=== PATIENT | female | born 1980 | race American Indian/Alaskan Native ===

== ENCOUNTER 2019-08-23 06:22 | Inpatient (IN) | payer MEDICAID ==
[2019-08-23] MEDS ORDERED: Acetaminophen 500 MG Tab PO ONE (06:30)
[2019-08-23] MEDS ORDERED: Scopolamine 1.5 MG Transdermal Patch TOP SCH (06:30)
[2019-08-23] MEDS ORDERED: Celecoxib 200 MG Cap PO ONE (06:30)
[2019-08-23] MEDS ORDERED: Gabapentin 300 MG Cap PO ONE (06:30)
[2019-08-23 06:48] LABS: HEMOGLOBIN A1C 9.3 % (4.5-6.2)
[2019-08-23] MEDS ORDERED: cefOXitin 2 GM in Sodium Chloride 0.9% 50 ML IV ONE (07:00)
[2019-08-23] MEDS ORDERED: Dextrose 5%-Lactated Ringers 1,000 ML IV SCH (07:00)
[2019-08-23] MEDS ORDERED: Rocuronium 50 MG/5 ML Vial ONE (07:10)
[2019-08-23] MEDS ORDERED: Glycopyrrolate 0.2 MG/ML 5 ML MDV ONE (07:10)
[2019-08-23] MEDS ORDERED: Succinylcholine 200 MG/10 ML MDV ONE (07:10)
[2019-08-23] MEDS ORDERED: Neostigmine Methylsulfate 1 MG/ML 5 ML Syringe ONE (07:10)
[2019-08-23] MEDS ORDERED: Propofol 200 MG/20 ML SDV ONE (07:10)
[2019-08-23] MEDS ORDERED: Dexamethasone 4 MG/ML SDV ONE (07:10)
[2019-08-23] MEDS ORDERED: Ondansetron 4 MG/2 ML SDV ONE (07:10)
[2019-08-23] MEDS ORDERED: fentaNYL 250 MCG/5 ML SDV ONE ×3 (07:11→10:34)
[2019-08-23] MEDS ORDERED: Magnesium Sulfate 3 GM in Sodium Chloride 0.9% 100 ML IV SCH (07:30)
[2019-08-23] MEDS ORDERED: Magnesium Sulfate 4.8 GM in Sodium Chloride 0.9% 250 ML IV ONE (07:30)
[2019-08-23] MEDS ORDERED: Ketamine 500 MG/5 ML MDV IV SCH (07:30)
[2019-08-23] MEDS ORDERED: Ketamine 50 MG in Sodium Chloride 0.9% 49.5 ML IV SCH (07:30)
[2019-08-23] MEDS ORDERED: Ropivacaine 50 ML, dexAMETHasone 8 MG, EPINEPHrine 0.4 MG, Sodium Chloride 0.9% 27.6 ML NERVRT SCH ×4 (07:30)
[2019-08-23] MEDS ORDERED: cefOXitin 2 GM Vial ONE (08:00)
[2019-08-23] MEDS ORDERED: Lactated Ringers 1,000 ML ONE (10:08)
[2019-08-23] MEDS ORDERED: hydrOXYzine HCL 100 MG/2 ML SDV IM PRN (14:02)
[2019-08-23] MEDS ORDERED: Cyclobenzaprine 10 MG Tab PO PRN (14:02)
[2019-08-23] MEDS ORDERED: SCOPOLAMINE PATCH CHECK TOP SCH (14:02)
[2019-08-23] MEDS ORDERED: Labetalol 20 MG/4 ML Syringe IVPUSH PRN (14:02)
[2019-08-23] MEDS ORDERED: Ondansetron 4 MG/2 ML SDV IVPUSH PRN (14:02)
[2019-08-23] MEDS ORDERED: Glucagon,Human Recombinant 1 MG Vial IM PRN (14:02)
[2019-08-23] MEDS ORDERED: oxyCODONE 5 MG Tab PO PRN (14:02)
[2019-08-23] MEDS ORDERED: Acetaminophen 500 MG Tab PO PRN (14:02)
[2019-08-23] MEDS ORDERED: HYDROmorphone 0.5 MG/0.5 ML Syringe IVPUSH PRN (14:02)
[2019-08-23] MEDS ORDERED: diphenhydrAMINE 50 MG/ML SDV IVPUSH PRN (14:02)
[2019-08-23] MEDS ORDERED: 50% Dextrose in Water 50 ML Syringe IVPUSH PRN (14:02)
[2019-08-23] MEDS ORDERED: HYDROmorphone 1 MG/ML Syringe IV PRN (14:02)
[2019-08-23] MEDS ORDERED: Calcium Gluconate 10% 1 GM/10 ML SDV IVPUSH PRN (14:02)
[2019-08-23] MEDS ORDERED: Sodium Ferric Gluconate Cmplex 250 MG in Sodium Chloride 0.9% 100 ML IV ONE (15:00)
[2019-08-23] MEDS: Lactated Ringers 1,000 ML IV SCH (15:05)
[2019-08-23] MEDS: Dextrose 5%-Lactated Ringers 1,000 ML IV SCH ×2 (15:05→22:34)
[2019-08-23] MEDS: cefOXitin 2 GM in Sodium Chloride 0.9% 50 ML IV SCH ×2 (15:34→22:10)
[2019-08-23] MEDS ORDERED: Pantoprazole 40 MG Vial IVPUSH SCH (16:00)
[2019-08-23] MEDS: Metoclopramide 10 MG/2 ML SDV IVPUSH PRN (16:15)
[2019-08-23] MEDS: Heparin Sodium 5,000 Units/ML Vial SUBCUT SCH (16:24)
[2019-08-23] MEDS: Gabapentin 300 MG Cap PO SCH ×2 (16:27→22:05)
[2019-08-23] MEDS: Acetaminophen 500 MG Tab PO SCH (16:28)
[2019-08-23] MEDS: MVI, Adult with Vitamin K 10 ML, Thiamine 200 MG, Chromium/Copper/Mang/Selen/Zn 1 ML in... IV SCH ×4 (18:27)
[2019-08-23] MEDS: Metoprolol Tartrate 50 MG Tab PO SCH (22:02)
[2019-08-23] MEDS: DULoxetine 30 MG Cap PO SCH (22:05)
[2019-08-23] MEDS: Insulin Lispro 100 Unit/ML 3 ML KwikPen SUBCUT PRN (22:09)
[2019-08-24] MEDS: Acetaminophen 500 MG Tab PO SCH ×5 (00:22→23:03)
[2019-08-24] MEDS: cefOXitin 2 GM in Sodium Chloride 0.9% 50 ML IV SCH ×2 (03:49→08:45)
[2019-08-24] MEDS: Heparin Sodium 5,000 Units/ML Vial SUBCUT SCH ×2 (03:52→16:07)
[2019-08-24] MEDS ORDERED: Iopamidol 612 MG/ML 50 ML SDV PO PRN (03:53)
[2019-08-24] MEDS: Insulin Lispro 100 Unit/ML 3 ML KwikPen SUBCUT PRN (03:53)
[2019-08-24] MEDS: Lactated Ringers 1,000 ML IV SCH ×2 (04:10→15:10)
[2019-08-24] MEDS ORDERED: HYDROmorphone 2 MG Tab PO PRN (07:15)
[2019-08-24] MEDS: Metoclopramide 10 MG/2 ML SDV IVPUSH PRN (07:38)
[2019-08-24] MEDS: Celecoxib 200 MG Cap PO SCH ×2 (08:46→20:53)
[2019-08-24] MEDS: Docusate Sodium 100 MG Cap PO SCH ×2 (08:46→21:00)
[2019-08-24] MEDS: Bisacodyl 5 MG Tab PO SCH ×2 (08:47→20:53)
[2019-08-24] MEDS: DULoxetine 30 MG Cap PO SCH ×2 (08:47→20:54)
[2019-08-24] MEDS: Metoprolol Tartrate 50 MG Tab PO SCH ×2 (08:47→20:56)
[2019-08-24] MEDS: Gabapentin 300 MG Cap PO SCH ×3 (08:48→20:53)
[2019-08-24] MEDS ORDERED: Losartan 50 MG Tab PO SCH (09:00)
[2019-08-24] MEDS ORDERED: Sodium Ferric Gluconate Cmplex 250 MG in Sodium Chloride 0.9% 100 ML IV ONE (10:00)
[2019-08-24] MEDS ORDERED: Pantoprazole 40 MG Tab.CR PO SCH (16:00)
[2019-08-24] MEDS: MVI, Adult with Vitamin K 10 ML, Thiamine 200 MG, Chromium/Copper/Mang/Selen/Zn 1 ML in... IV SCH ×4 (16:09)
[2019-08-25] MEDS: Heparin Sodium 5,000 Units/ML Vial SUBCUT SCH (03:26)
[2019-08-25] MEDS ORDERED: Cyanocobalamin (Vitamin B12) 1,000 MCG/ML SDV IM ONE (09:00)
--- NOTE | 2019-08-26 10:15 | CR ---
[facility] HISTORY: Postbariatric surgery FINDINGS: Patient swallowed water-soluble contrast. Upright views of the abdomen show no evidence of extravasation or obstruction. There is a left upper quadrant surgical drain. IMPRESSION: Status post bariatric surgery No extravasation or obstruction seen
--- NOTE | 2019-08-26 13:43 | PN ---
DATE OF SERVICE: 08/24/2019 The patient is postop day #1 from a conversion of the sleeve gastrectomy to duodenal switch status. Her blood sugars are still a little bit high, but I think they will come down. We will hold off on her diabetic medications today to see how things go in that regard. Otherwise, her upper GI x-ray looks good. We will move up to a step-2 diet and strictly oral pain medication and begin some bowel stimulation. She will be receiving her second of 2 ferric gluconate infusions today as well, she tolerated the one yesterday nicely. She may or may not be ready for discharge home tomorrow. Bruno Proctor MD /[id number]
--- NOTE | 2019-08-26 16:52 | DISCH ---
FINAL DIAGNOSES: 1. Persistent type 2 diabetes mellitus status post sleeve gastrectomy. 2. History of hypertension. 3. History of polycystic ovary disease. 4. History of anxiety and depression. 5. History of gastroesophageal reflux disease. 6. Hyperlipidemia. 7. Bilateral pseudophakia. OPERATIVE PROCEDURE: Done on 08/23/2019, formation of laparoscopic duodenal switch, status post previous sleeve gastrectomy. SUMMARY: This is a 38-year-old status post sleeve gastrectomy. This was done as initial procedure, as at the time of that operative procedure in February 2018, the mesentery was too immobile to allow primary duodenoileostomy. Since that time, she has come down to a BMI in the 33 range, but remained on Victoza and Levemir with both medications wholly resulting in a preoperative hemoglobin A1c of 9.3, i.e. still poor control. On the date of admission, the patient underwent a conversion to a laparoscopic duodenal switch. It was quite nice to see the blood sugars come down a little bit, and most recent blood sugars were in the 140 range off all diabetic medications and on ongoing diet. We were expecting it to fall somewhat further as time goes by. Otherwise, the patient is tolerating a step-2 diet. We will have her stay on that until the first appointment, which will be with Patsy Hong at [facility] on 09/02/2019. She will be on her usual medications other than we will continue to hold the Victoza and Levemir, and she will be instructed to keep a blood sugar log up until the first appointment and bring that to that appointment.
--- NOTE | 2019-09-01 10:37 | OR ---
DATE OF PROCEDURE: 08/23/2019 SURGEON: Bruno Proctor MD PREOPERATIVE DIAGNOSIS: Persistent poorly-controlled type 2 diabetes mellitus, status post sleeve gastrectomy. POSTOPERATIVE DIAGNOSIS: Persistent poorly-controlled type 2 diabetes mellitus, status post sleeve gastrectomy. OPERATIVE PROCEDURE: Formation of laparoscopic duodenal switch ([id number]). ANESTHESIA: General. METHODS EXAMINER: Patsy Hong PA-C INDICATIONS FOR PROCEDURE: This is a 38-year-old female, status post previous sleeve gastrectomy. The patient at that time was unable to have a duodenal switch completed due to the immobility of her small bowel mesentery. She remains at this point poorly-controlled diabetic on 0.8 mg of Victoza and 30 units of Lantus daily with significantly elevated hemoglobin A1c. Given this, at this point, the patient will be converted to a duodenal switch status. Potential risks including bleeding, infection, leaks from the anastomosis were all reviewed, and the patient wishes to proceed. DETAILS OF PROCEDURE: The patient was taken to the operating room, and after general endotracheal anesthesia was induced, was placed in a lithotomy position and the abdomen prepped and draped 20 cm inferior and 5 cm left of the xiphoid process. A transverse incision was made and then carried down through the skin and subcutaneous tissue. The peritoneal cavity was entered under direct vision with an Optiview trocar, inflated to 15 mmHg pressure with CO2. Following this, bilateral transversus abdominis plane blocks were placed and 5 additional trocars were placed across the upper and mid abdomen. The area of the sleeve gastrectomy was inspected and found to be otherwise unremarkable. Dissection then began in the distal antrum dividing the omentum off that area with Harmonic scalpel and continued this to a point roughly 4 cm distal to the pylorus. At this point, the small bowel was identified at the ileocecal valve and traced back 300 cm. At that point, the duodenal ileostomy was to be performed at the superior. At this point, then the duodenum was divided 4 cm distal to the pylorus with a reinforced AMIE purple load. The upper and lower aspects of the ileum were then sutured to the superior and inferior aspects of the divided duodenum with some 3-0 Vicryl stitch. Enterotomies were then placed in the duodenum and adjacent ileum. Initially, a posterior layer of 3-0 Vicryl stitch in the seromuscular plane was placed and continued around the corners mostly inferiorly and superiorly. Following this, then a full-thickness layer of 3-0 Vicryl stitch was began posteriorly and then continued around the corners and then from there continued anteriorly completing the anterior layer of the anastomosis. The seromuscular plane of those sutures was then completed anteriorly as well, and the area reinforced with some fibrin sealant. A leak test was accomplished with injection of air into the stomach. Good flow through the duodenal ileostomy was confirmed. No air bubbles or signs of leak were identified. At that point, no further problems were noted. The area was drained with a single David-Gaxiola drain placed through the left lateral trocar site. Trocars were then sequentially removed and the peritoneal cavity deflated. Incisions were closed with some 4-0 Vicryl skin stitch and drain affixed with 4-0 Vicryl stitch as well, and the patient taken to the recovery room in satisfactory condition. There were no evident complications. Physician clinic office assistant, Patsy Hong, played an essential role in assisting in this case, helping to position the patient, retract structures as needed, as well as suturing and cutting sutures when indicated. Her presence improved patient safety and decreased operative time. Bruno Proctor MD /[id number]
== END 2019-08-25 09:30 | disposition home or self-care (01) | DRG 621 ==
LOC: JP.SDSSCHI 06:22 → JP.SDS 06:22 → EDSTATUS 07:15 → JP.MS 12:50
PROVIDERS: ADMIT Surgery; ATTEND Surgery
PROC: 0D194ZB Bypass Duodenum to Ileum, Percutaneous Endoscopic Approach (ICD-10-PCS; principal; 2019-08-23)
DX: E66.01 Morbid (severe) obesity due to excess calories (principal); E28.2 Polycystic ovarian syndrome; F41.9 Anxiety disorder, unspecified; K21.9 Gastro-esophageal reflux disease without esophagitis; E78.5 Hyperlipidemia, unspecified; N18.3 Chronic kidney disease, stage 3 (moderate); F32.9 Major depressive disorder, single episode, unspecified; Z96.1 Presence of intraocular lens; Z98.84 Bariatric surgery status; I12.9 Hypertensive chronic kidney disease with stage 1 through stage 4 chronic kidney disease, or unspecified chronic kidney disease; E11.22 Type 2 diabetes mellitus with diabetic chronic kidney disease; Z68.33 Body mass index [BMI] 33.0-33.9, adult
CPT/HCPCS: 36415; 74240; 74240-26; 81025; 82728; 82947; 82962; 83036; 86850; 86900; 86901; 93005; A9270-GY; C9113; J0171; J0330; J0694; J1100; J1644; J1815; J1815-GY; J2405; J2704; J2710; J2765; J2795; J2916; J3010; J3411; J3475; J3490; J7050; J7120; J7121; Q9967